=== PATIENT | female | born 1995 | race Caucasian/White ===

== ENCOUNTER 2023-09-16 11:04 | Emergency (ER) | payer OTHER, SELFPAY ==
[2023-09-16 11:05] VITALS: BP 118/80
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
[2023-09-16 11:22] VITALS: BMI 40.1
[2023-09-16] MEDS: MOTRIN 600 MG PO (12:16)
== END 2023-09-16 13:01 | disposition home or self-care (01) ==
LOC: EMR 11:04
PROVIDERS: EMERGENCY PHYSICIAN Emergency Medicine
DX: S82.832A Other fracture of upper and lower end of left fibula, initial encounter for closed fracture (principal); X50.1XXA Overexertion from prolonged static or awkward postures, initial encounter
CPT/HCPCS: 99283; 73610